=== PATIENT | male | born 1950 | race Caucasian/White ===

== ENCOUNTER 2017-04-09 07:38 | Day surgery (SDC) | payer MEDICARE ==
[2017-04-08 15:52] LABS: ABSOLUTE EOSINOPHILS # (AUTO) 0.1 10^3/uL (0.0-0.6); ABSOLUTE LYMPHOCYTES (AUTO) 1.9 10^3/uL (0.5-4.7); ABSOLUTE MONOCYTES (AUTO) 1.1 10^3/uL (0.1-1.4); ABSOLUTE NEUT (AUTO) 3.9 10^3/uL (1.7-8.2); BASOPHILS % (AUTO) 0.5 % (0-2); EOSINOPHILS % (AUTO) 0.8 % (0-6); HEMATOCRIT 47.9 % (37.9-51.0); HEMOGLOBIN 16.1 g/dL (13.5-17.0); HGB HCT DIFFERENCE 0.4; LYMPHOCYTES % (AUTO) 27.5 % (13-45); MEAN CORPUSCULAR HEMOGLOBIN 30.4 pg (27.0-33.4); MEAN CORPUSCULAR HGB CONC 33.6 g/dL (32.0-36.0); MEAN CORPUSCULAR VOLUME 90 fl (80-97); MONOCYTES % (AUTO) 15.9 % (3-13); RED CELL DISTRIBUTION WIDTH 13.7 % (11.5-14.0); SEGMENTED NEUTROPHILS % (AUTO) 55.3 % (42-78); WHITE BLOOD COUNT 7.1 10^3/uL (4.0-10.5)
[2017-04-08 16:10] LABS: ANION GAP 9 (5-19); BLOOD UREA NITROGEN 20 mg/dL (7-20); CALCIUM 9.3 mg/dL (8.4-10.2); CARBON DIOXIDE 25 mmol/L (22-30); CHLORIDE 105 mmol/L (98-107); CREATININE RESULT 1.01 mg/dL (0.52-1.25); GLUCOSE 101 mg/dL (75-110); POTASSIUM 4.3 mmol/L (3.6-5.0)
[2017-04-09] MEDS ORDERED: LIDOCAINE 2% JELLY 30 ML TUBE ONE (07:44)
[2017-04-09] MEDS ORDERED: EPINEPHRINE INJ/PF 1 MG/1 ML AMPULE ONE (07:44)
[2017-04-09] MEDS ORDERED: NALOXONE HCL INJ/PF 0.4 MG/1 ML SDV ONE (07:44)
[2017-04-09] MEDS ORDERED: FLUMAZENIL INJ 0.5 MG/5 ML VIAL IV ONE (07:45)
[2017-04-09] MEDS ORDERED: FENTANYL CITRATE INJ/PF 100 MCG/2 ML AMPUL ONE (07:45)
[2017-04-09] MEDS ORDERED: EPINEPHRINE INJ 1 MG/10 ML DISP.SYRIN ONE (07:45)
[2017-04-09] MEDS ORDERED: LIDOCAINE 2% INJ (20 MG/ML) 20 ML MDV ONE ×2 (07:55→11:03)
[2017-04-09 09:07] LABS: HEMATOCRIT 50.5 % (37.9-51.0); HEMOGLOBIN 16.9 g/dL (13.5-17.0); HGB HCT DIFFERENCE 0.2; MEAN CORPUSCULAR HEMOGLOBIN 30.3 pg (27.0-33.4); MEAN CORPUSCULAR HGB CONC 33.4 g/dL (32.0-36.0); MEAN CORPUSCULAR VOLUME 91 fl (80-97); RED BLOOD COUNT 5.57 10^6/uL (4.35-5.55); WHITE BLOOD COUNT 7.2 10^3/uL (4.0-10.5)
[2017-04-09 09:30] LABS: ANION GAP 11 (5-19); BLOOD UREA NITROGEN 15 mg/dL (7-20); CALCIUM 9.5 mg/dL (8.4-10.2); CARBON DIOXIDE 24 mmol/L (22-30); CHLORIDE 105 mmol/L (98-107); CREATININE RESULT 0.83 mg/dL (0.52-1.25); GLUCOSE 105 mg/dL (75-110); POTASSIUM 4.5 mmol/L (3.6-5.0); SODIUM 140.3 mmol/L (137-145)
[2017-04-09] MEDS: MIDAZOLAM 2 MG/2 ML INJ ONE ×8 (10:35→10:42)
--- NOTE | 2017-04-09 12:04 | EKG REPORT ---
SEVERITY:- NORMAL ECG - SINUS RHYTHM : Confirmed by: Batsheva Wong MD 09-Apr-2017 12:03:15
[2017-04-09 12:54] VITALS: BP 123/68
--- NOTE | 2017-04-09 16:14 | OPERATIVE REPORT E ---
Operative Report NAME: JODY ROBERTS : 1950 AGE: 66Y DATE OF SURGERY: ROOM: PREOPERATIVE DIAGNOSIS: The patient is a 50-year-old male who came in with a seven cough, pulmonary infiltrates both lungs. Cavitary nodule on the left upper lobe. OPERATION: The patient underwent flexible bronchoscopy today with bronchial washings and bronchial lavage. SURGEON: LIZET GREGORY M.D. PROCEDURE: Patient provided consent for the procedure. The patient verbalized understanding of the indications, and potential complications of the flexible bronchoscopy, which includes bleeding, infection, pneumothorax, cardiac arrhythmia, as well as heart attack. Patient was connected to the cardiac monitors with pulse oximetry, respiratory monitor, and blood pressure monitor. Patient was given lidocaine 2% 5 mL via nebulizer, and 2% lidocaine solution 3 mL via atomizer. Lidocaine gel 2% was applied through cotton pledgets to the posterior pharyngeal area and posterior pharyngeal wall; 1% lidocaine solution was given in aliquots of 3 mL as the flexible bronchoscope was advanced into the vocal cords and airways. Patient was given versed 0.5 mg increments for a total dose of 4 mg and fentanyl at 25 mcg increments for a total of 50 mcg. The vocal cords appeared normal. The epiglottis appeared normal. The trachea appeared normal. There were no lesions noted. Adriana was sharp at the midline. Right mainstem bronchus, right upper lobe bronchi, right middle lobe bronchi, and right lower lobe bronchi appeared normal. There were no endobronchial lesions noted. Left mainstem bronchus, left upper lobe bronchi, and the left lower lobe appeared normal. There were no endobronchial lesions. Secretions were suctioned from the right upper lobe, right middle lobe, left lower lobe, and left upper lobe. Bronchioalveolar lavage was performed on the right upper lobe, and then secretions were suctioned thereafter. Bronchioalveolar lavage was performed on the left upper lobe, and secretions were suctioned thereafter, and bronchioalveolar lavage was also performed on the right middle lobe. Patient tolerated the procedure very well. Bronchioalveolar lavage will be sent for cytology and microbiology. The bronchial washings will be sent to microbiology for AFB culture,fungal culture, and bacterial cultures. Patient advised for pulmonary clinic followup in 1 to 2 weeks. DICTATING PHYSICIAN: LIZET GREGORY MD,CANDIDO,MPH [id number] PHY#: [id number] ID: [id number] JOB#: [id number] ACCT: [id number] cc:LIZET GREGORY M.D. > MARIA A
== END 2017-04-09 12:50 | disposition home or self-care (01) ==
LOC: OROUT 07:38
PROVIDERS: ATTEND Internal Medicine Critical Care Medicine
PROC: 0B988ZX Drainage of Left Upper Lobe Bronchus, Via Natural or Artificial Opening Endoscopic, Diagnostic (ICD-10-PCS; 2017-04-09)
PROC: 0B958ZX Drainage of Right Middle Lobe Bronchus, Via Natural or Artificial Opening Endoscopic, Diagnostic (ICD-10-PCS; 2017-04-09)
PROC: 0B948ZX Drainage of Right Upper Lobe Bronchus, Via Natural or Artificial Opening Endoscopic, Diagnostic (ICD-10-PCS; principal; 2017-04-09 10:00)
DX: R91.8 Other nonspecific abnormal finding of lung field (principal); R91.1 Solitary pulmonary nodule; J47.9 Bronchiectasis, uncomplicated; B95.61 Methicillin susceptible Staphylococcus aureus infection as the cause of diseases classified elsewhere; Z79.899 Other long term (current) drug therapy; Z87.891 Personal history of nicotine dependence
CPT/HCPCS: 31624; 36415 ×2; 87070; 87205; 87206; 87116; 87101; 85025; 85027; 87077; 80048 ×2; 84484; 87186; 87015; 88162; 88104 ×2; 93005; 93010; J2250; J3490; J3010; J0171; J2310

== ENCOUNTER 2018-04-27 13:12 | Observation (INO) | payer MEDICARE ==
[2018-04-27] MEDS ORDERED: IPRATROPIUM/ALBUTEROL 0.5-2.5 MG/3 ML AMPUL NEB ONE (14:02)
[2018-04-27] MEDS ORDERED: ASPIRIN 81 MG TABLET, CHEWABLE PO ONE (14:02)
--- NOTE | 2018-04-27 14:05 | ER Document Report ---
ED Medical Screen (RME) - General Chief Complaint: Chest Pain Stated Complaint: CHEST PRESSURE Time Seen by Provider: 04/27/18 14:02 Notes: 67 years old male presents today with chest heaviness chest pressure sensation for a long period of time. But today this morning it was more severe therefore present to the ED. It is not associated with left arm numbness tingling sensation nausea vomiting palpitation or diaphoresis. He had a stent placed in . Currently being evaluated by data collection technician his next appointment is coming . Had no recent angiography of stress echo. He also seen by a weaving machine operator no recent lung function. Former smoker. TRAVEL OUTSIDE OF THE [place] IN LAST 30 DAYS: No - Related Data Allergies/Adverse Reactions: No Known Allergies Allergy (Unverified 07/11/16 07:46) Past Medical History - Social History Chew tobacco use (# tins/day): No Frequency of alcohol use: None Drug Abuse: None - Past Medical History Cardiac Medical History: Reports: Hx Coronary Artery Disease - CARDIAC STENT X 1 (1999), Hx Heart Attack - 1999 Denies: Hx Hypertension Pulmonary Medical History: Denies: Hx Asthma, Hx Bronchitis, Hx COPD, Hx Pneumonia Neurological Medical History: Denies: Hx Cerebrovascular Accident, Hx Seizures Renal/ Medical History: Denies: Hx Peritoneal Dialysis GI Medical History: Reports: Hx Gastroesophageal Reflux Disease Musculoskeltal Medical History: Denies Hx Arthritis Past Surgical History: Reports: Hx Appendectomy, Hx Cardiac Catheterization - With stent placement about 20 years ago., Hx Coronary Stent, Hx Orthopedic Surgery - Right hand surgery in the remote past. - Immunizations Hx Diphtheria, Pertussis, Tetanus Vaccination: No - UNK Physical Exam - Vital signs Vitals: Temp Pulse Resp BP Pulse Ox 98.3 F 114 H 16 133/72 H 97 04/27/18 13:26 04/27/18 13:26 04/27/18 13:26 04/27/18 13:26 04/27/18 13:26 Course - Vital Signs Vital signs: Temp Pulse Resp BP Pulse Ox 98.3 F 114 H 16 133/72 H 97 04/27/18 13:26 04/27/18 13:26 04/27/18 13:26 04/27/18 13:26 04/27/18 13:26 Doctor's Discharge - Discharge Referrals: ARRON HIDALGO, [employer] [employer]ER [Primary Care Provider] - Follow up as needed
--- NOTE | 2018-04-27 15:22 | RADIOLOGY REPORT (SQ) ---
EXAM DESCRIPTION: CHEST SINGLE VIEW COMPLETED DATE/TIME: 04/27/2018 3:00 pm REASON FOR STUDY: Shortness of breath COMPARISON: Chest CT scan dated June 2016 EXAM PARAMETERS: NUMBER OF VIEWS: One view. TECHNIQUE: Single frontal radiographic view of the chest acquired. RADIATION DOSE: NA LIMITATIONS: None. FINDINGS: LUNGS AND PLEURA: Extensive chronic appearing changes are identified which were present on the previous study. There are some minimal confluent densities in the left lung which could represe nt an acute process superimposed on the chronic underlying changes. Clinical correlation and followu p is recommended. MEDIASTINUM AND HILAR STRUCTURES: No masses. Contour normal. HEART AND VASCULAR STRUCTURES: Heart normal in size. Normal vasculature. BONES: No acute findings. HARDWARE: None in the chest. OTHER: No other significant finding. IMPRESSION: Extensive chronic appearing changes as noted above. There are some minimal confluent de nsities in the left lung which could represent an acute process superimposed on the chronic underlyin g changes. Clinical correlation and followup is recommended. Other findings as noted above TECHNICAL DOCUMENTATION: JOB ID: [id number] [email or web address]- All Rights Reserved Reading location - IP/workstation name: [email or web address]
[2018-04-27 15:26] LABS: ABSOLUTE LYMPHOCYTES (AUTO) 2.6 10^3/uL (0.5-4.7); ABSOLUTE MONOCYTES (AUTO) 1.4 10^3/uL (0.1-1.4); ABSOLUTE NEUT (AUTO) 6.9 10^3/uL (1.7-8.2); BASOPHILS % (AUTO) 0.4 % (0-2); EOSINOPHILS % (AUTO) 0.4 % (0-6); HEMATOCRIT 49.8 % (37.9-51.0); HEMOGLOBIN 16.8 g/dL (13.5-17.0); LYMPHOCYTES % (AUTO) 23.5 % (13-45); MEAN CORPUSCULAR HEMOGLOBIN 30.5 pg (27.0-33.4); MEAN CORPUSCULAR HGB CONC 33.8 g/dL (32.0-36.0); MEAN CORPUSCULAR VOLUME 90 fl (80-97); MONOCYTES % (AUTO) 12.7 % (3-13); PLATELET COUNT 260 10^3/uL (150-450); RED BLOOD COUNT 5.53 10^6/uL (4.35-5.55); RED CELL DISTRIBUTION WIDTH 14.4 % (11.5-14.0); TOTAL CELLS COUNTED % (AUTO) 100 %; WHITE BLOOD COUNT 10.9 10^3/uL (4.0-10.5)
[2018-04-27 15:48] LABS: ALANINE AMINOTRANSFERASE 20 U/L (21-72); ALBUMIN 4.9 g/dL (3.5-5.0); ALKALINE PHOSPHATASE 84 U/L (38-126); ANION GAP 14 (5-19); ASPARTATE AMINO TRANSFERASE 34 U/L (17-59); BILIRUBIN,DIRECT 0.3 mg/dL (0.0-0.4); BILIRUBIN,TOTAL 0.6 mg/dL (0.2-1.3); BLOOD UREA NITROGEN 15 mg/dL (7-20); CALCIUM 9.9 mg/dL (8.4-10.2); CARBON DIOXIDE 26 mmol/L (22-30); CHLORIDE 104 mmol/L (98-107); CREATINE KINASE 159 U/L (55-170); GLUCOSE 117 mg/dL (75-110); POTASSIUM 3.9 mmol/L (3.6-5.0); SODIUM 144.1 mmol/L (137-145); TOTAL PROTEIN 9.5 g/dL (6.3-8.2)
[2018-04-27 15:52] LABS: CREATINE KINASE MB 1.72 ng/mL (<4.55)
[2018-04-27 15:55] LABS: TROPONIN I 0.044 ng/mL
--- NOTE | 2018-04-27 22:28 | EKG REPORT ---
SEVERITY:- ABNORMAL ECG - SINUS TACHYCARDIA PROBABLE INFEROLATERAL INFARCT, AGE INDETERM : Confirmed by: Batsheva Wong MD 27-Apr-2018 22:27:36
--- NOTE | 2018-04-27 23:34 | ER Document Report ---
ED Cardiac - General Chief Complaint: Chest Pain Stated Complaint: CHEST PRESSURE Time Seen by Provider: 04/27/18 14:02 Mode of Arrival: Ambulatory TRAVEL OUTSIDE OF THE [place] IN LAST 30 DAYS: No - HPI Patient complains to provider of: Chest pain, Other - 67-year-old man with the past medical history significant for myocardial infarction as well as a single stent placement many years prior was on aspirin who presents for evaluation of intermittent chest pressure and tightness which is exertional in nature causes him some diaphoresis and nausea and generally makes him stop having to do activities. This is been going on for some time but has been worsening of late. He does have some episodes of lightheadedness during these times. He denies any emesis, diarrhea constipation dysuria or dark tarry stools. He does note that he has had some chest tightness for which she has been evaluated for his lungs without any diagnosis being identified. Nothing is seemed to make the pain any better except for rest, exertion makes it worse. Use of: Other - Related Data Allergies/Adverse Reactions: No Known Allergies Allergy (Unverified 07/11/16 07:46) Past Medical History - General Information source: Patient - Social History Smoking Status: Former Smoker Chew tobacco use (# tins/day): No Frequency of alcohol use: None Drug Abuse: None Family History: Reviewed & Not Pertinent Patient has suicidal ideation: No Patient has homicidal ideation: No - Past Medical History Cardiac Medical History: Reports: Hx Coronary Artery Disease - CARDIAC STENT X 1 (1999), Hx Heart Attack - 1999 Denies: Hx Hypertension Pulmonary Medical History: Denies: Hx Asthma, Hx Bronchitis, Hx COPD, Hx Pneumonia Neurological Medical History: Denies: Hx Cerebrovascular Accident, Hx Seizures Renal/ Medical History: Denies: Hx Peritoneal Dialysis GI Medical History: Reports: Hx Gastroesophageal Reflux Disease Musculoskeletal Medical History: Denies Hx Arthritis Past Surgical History: Reports: Hx Appendectomy, Hx Cardiac Catheterization - With stent placement about 20 years ago., Hx Coronary Stent, Hx Orthopedic Surgery - Right hand surgery in the remote past. - Immunizations Hx Diphtheria, Pertussis, Tetanus Vaccination: No - UNK Review of Systems - Review of Systems -: Yes All other systems reviewed and negative Physical Exam - Vital signs Vitals: Temp Pulse Resp BP Pulse Ox 98.3 F 114 H 16 133/72 H 97 04/27/18 13:26 04/27/18 13:26 04/27/18 13:26 04/27/18 13:26 04/27/18 13:26 - General General appearance: Appears well In distress: None - HEENT Head: Normocephalic Eyes: Normal Conjunctiva: Normal - Respiratory Respiratory status: No respiratory distress Chest status: Nontender Breath sounds: Normal Chest palpation: Normal - Cardiovascular Rhythm: Regular, Tachycardia Heart sounds: Normal auscultation - Abdominal Inspection: Normal Distension: No distension Bowel sounds: Normal Tenderness: Nontender - Back Back: Normal - Extremities General upper extremity: Normal inspection General lower extremity: Normal inspection - Neurological Neuro grossly intact: Yes - Skin Skin Temperature: Warm Course - Re-evaluation Re-evalutation: 04/28/18 03:44 This 67-year-old man presented for evaluation of intermittent chest pain which is worth with exertion. He has a significant cardiac history consisting of an NC and stent placement in the past, given his age history risk factors EKG and troponin his heart score is a 6. He has not had any evocative testing recently as such believe he would benefit from an inpatient stay and consideration for either catheterization or stress test. Patient is currently symptom-free at rest, will plan to continue monitoring. His EKG did demonstrate modest ischemic changes from previous. Has spoken to the hospitalist who agrees to admission at this time for this patient. We will plan to reassess as necessary and continue to monitor in emergency department. - Vital Signs Vital signs: Temp Pulse Resp BP Pulse Ox 98.3 F 114 H 19 125/66 96 04/27/18 13:26 04/27/18 13:26 04/28/18 03:01 04/28/18 03:00 04/28/18 03:01 - Laboratory Result Diagrams: 04/27/18 14:50 04/27/18 14:50 Laboratory results interpreted by me: 04/27/18 04/27/18 14:50 14:50 WBC 10.9 H RDW 14.4 H Glucose 117 H ALT 20 L Total Protein 9.5 H - EKG Interpretation by [facility] EKG shows normal: Sinus rhythm Rate: Tachycardia - rate 117, normal axis, ST segment depressions through V4 5 6 Department changed from EKG from 04/09/2017 Discharge - Discharge
[2018-04-27] MEDS ORDERED: ACETAMINOPHEN 325 MG TABLET PO PRN (23:46)
[2018-04-27] MEDS ORDERED: ONDANSETRON HCL INJ/PF 4 MG/2 ML SDV IV PRN (23:46)
[2018-04-27] MEDS ORDERED: MAGNESIUM HYDROXIDE SUSP 30 ML UDCUP PO PRN (23:46)
[2018-04-27] MEDS ORDERED: MAG HYDROX/AL HYDROX/SIMETH SUSP 30 ML UDCUP PO PRN (23:46)
--- NOTE | 2018-04-28 00:30 | PDOC H&P ---
History of Present Illness Admission Date/PCP: 04/27/2018 ARRON HIDALGO NP Patient complains of: Chest pain History of Present Illness: JODY ROBERTS is a 67 year old male with history of coronary artery disease status post PCI and stent in 1998 who presented to the emergency room with a calcium of midsternal chest pain felt this tightness increasing with exertion and relieved with rest which has been intermittent over the last 3 years but got worse lately. He denies any associated nausea vomiting or diaphoresis, dyspnea or palpitations. He denied abdominal pain or any bleeding diathesis. No fever or chills. No cough or wheezing or hemoptysis. Upon presentation to the emergency room his EKG showed sinus tachycardia with a rate of 117 and. Blood pressure is 133/72 with a pulse of 114, respiratory rate 16, temperature 98.3 and pulse oximetry of 97% on room air. Labs showed the mild leukocytosis. CMP was unremarkable and troponin I was 0.044 and later 0.102 then 0.108 with CK-MB 1.72 and CK 159. His chest x-ray showed extensive chronic appearing changes with some minimal confluent densities in the left lung which could represent an acute process superimposed on the chronic underlying changes. The patient however denied any respiratory symptoms. The patient was given aspirin. He will be admitted to an observation telemetry bed for further evaluation and monitoring. Past Medical History Cardiac Medical History: Reports: Coronary Artery Disease - CARDIAC STENT X 1 ( 1999), Myocardial Infarction - 1999, Heart Murmur - Systolic Denies: Hypertension Pulmonary Medical History: Denies: Asthma, Bronchitis, Chronic Obstructive Pulmonary Disease (COPD), Pneumonia Neurological Medical History: Denies: Seizures GI Medical History: Reports: Gastroesophageal Reflux Disease Musculoskeltal Medical History: Denies: Arthritis Hematology: Denies: Anemia Past Surgical History Past Surgical History: Reports: Appendectomy, Cardiac Catheterization - With stent placement about 20 years ago., Coronary Stent, Orthopedic Surgery - Right hand surgery in the remote past. Social History Smoking Status: Former Smoker Frequency of Alcohol Use: Occasional Hx Recreational Drug Use: No Drugs: None Hx Prescription Drug Abuse: No Family History Family History: CAD, Malignancy Parental Family History Reviewed: Yes Children Family History Reviewed: Yes Sibling(s) Family History Reviewed.: Yes Medication/Allergy Home Medications: Ascorbic Acid [Vitamin C] 04/09/17 Fiber [Fiber Choice] 04/09/17 Creswell-3/Dha/Epa/Fish Oil [Fish Oil 1,000 mg Softgel] 04/09/17 Ubidecarenone [Coq-10] 04/09/17 Allergies/Adverse Reactions: No Known Allergies Allergy (Unverified 07/11/16 07:46) Review of Systems Review of Systems: As per history of present illness. All pertinent systems were reviewed above. Constitutional, HEENT, cardiovascular, respiratory, GI, , musculoskeletal, neuro, psychiatric, endocrine, integumentary and hematologic systems were reviewed and are otherwise negative/unremarkable except for positive findings mentioned above in the HPI. Physical Exam Vital Signs: Temp Pulse Resp BP Pulse Ox 98.3 F 114 H 22 H 141/81 H 93 04/27/18 13:26 04/27/18 13:26 04/27/18 20:01 04/27/18 20:01 04/27/18 20:01 Intake & Output 04/26/18 04/27/18 04/28/18 06:59 06:59 06:59 Weight 78.8 kg Exam: Generally: Very pleasant elderly male in no acute distress Vital signs-as listed Head - atraumatic, normocephalic. Pupils - equal, round and reactive to light and accommodation. Extraocular movements are intact. No scleral icterus. Oropharynx - moist mucous membranes and tongue. No pharyngeal erythema or exudate. Neck - supple. No JVD. Carotid pulses 2+ bilaterally. No carotid bruits. No palpable thyromegaly or lymphadenopathy. Cardiovascular - regular rate and rhythm. Normal S1 and S2. 2/6 systolic ejection murmur, with no gallops or rubs. Lungs - clear to auscultation bilaterally. Abdomen - soft and nontender. Positive bowel sounds. No palpable organomegaly or masses. Extremities - no pitting edema, clubbing or cyanosis. Neuro - grossly non-focal. Skin - no rashes. and rectal exam - deferred. Results Laboratory Results: 04/27/18 14:50 04/27/18 14:50 04/27/18 04/27/18 04/27/18 14:50 14:50 14:50 WBC 10.9 H RBC 5.53 Hgb 16.8 Hct 49.8 MCV 90 MCH 30.5 MCHC 33.8 RDW 14.4 H Plt Count 260 Seg Neutrophils % 63.0 Lymphocytes % 23.5 Monocytes % 12.7 Eosinophils % 0.4 Basophils % 0.4 Absolute Neutrophils 6.9 Absolute Lymphocytes 2.6 Absolute Monocytes 1.4 Absolute Eosinophils 0.0 Absolute Basophils 0.0 Sodium Cancelled 144.1 Potassium Cancelled 3.9 Chloride Cancelled 104 Carbon Dioxide Cancelled 26 Anion Gap Cancelled 14 BUN Cancelled 15 Creatinine Cancelled 1.16 Est GFR ( Amer) Cancelled > 60 Est GFR (Non-Af Amer) Cancelled > 60 Glucose Cancelled 117 H Calcium Cancelled 9.9 Total Bilirubin Cancelled 0.6 AST Cancelled 34 ALT Cancelled 20 L Alkaline Phosphatase Cancelled 84 Total Protein Cancelled 9.5 H Albumin Cancelled 4.9 04/27/18 04/27/18 04/27/18 14:50 14:50 14:50 Creatine Kinase Cancelled 159 CK-MB (CK-2) 1.72 Troponin I 0.044 04/27/18 04/27/18 18:30 21:22 Creatine Kinase CK-MB (CK-2) Troponin I 0.102 0.108 Impressions: Chest X-Ray 04/27/18 14:02 IMPRESSION: Extensive chronic appearing changes as noted above. There are some minimal confluent densities in the left lung which could represent an acute process superimposed on the chronic underlying changes. Clinical correlation and followup is recommended. Other findings as noted above Assessment & Plan - Diagnosis (1) Chest pain Is this a current diagnosis for this admission?: Yes Plan: Chest pain, rule out acute coronary syndrome. The patient will be admitted to an observation telemetry bed. Will follow serial cardiac enzymes and EKGs. We will obtain a cardiology consult in a.m. for further cardiac risk stratification. The patient will be placed on aspirin as well as p.r.n. sublingual nitroglycerin and morphine sulfate for pain. (2) Coronary artery disease Is this a current diagnosis for this admission?: Yes Plan: The patient will be placed on aspirin and statin therapy. Beta-leobardo therapy should be considered. (3) GERD (gastroesophageal reflux disease) Is this a current diagnosis for this admission?: Yes Plan: The patient will be placed on p.o. Prevacid the possibility of GI etiology. (4) DVT prophylaxis Is this a current diagnosis for this admission?: Yes Plan: Subcutaneous Lovenox - Plan Summary Plan Summary: The plan of care was discussed in details with the patient. I answered all questions. The patient agreed to proceed with the above-mentioned plan. The patient is presumably full code. This note was created by [employer] software and may contain typo errors that may have not been proofread.
[2018-04-28 03:50] LABS: ABSOLUTE BASOPHILS # (AUTO) 0.1 10^3/uL (0.0-0.2); ABSOLUTE EOSINOPHILS # (AUTO) 0.1 10^3/uL (0.0-0.6); ABSOLUTE LYMPHOCYTES (AUTO) 1.9 10^3/uL (0.5-4.7); ABSOLUTE MONOCYTES (AUTO) 1.1 10^3/uL (0.1-1.4); ABSOLUTE NEUT (AUTO) 4.5 10^3/uL (1.7-8.2); BASOPHILS % (AUTO) 0.7 % (0-2); EOSINOPHILS % (AUTO) 1.2 % (0-6); HEMATOCRIT 47.1 % (37.9-51.0); MEAN CORPUSCULAR HEMOGLOBIN 30.2 pg (27.0-33.4); MEAN CORPUSCULAR HGB CONC 33.9 g/dL (32.0-36.0); MEAN CORPUSCULAR VOLUME 89 fl (80-97); MONOCYTES % (AUTO) 14.4 % (3-13); PLATELET COUNT 229 10^3/uL (150-450); RED BLOOD COUNT 5.27 10^6/uL (4.35-5.55); RED CELL DISTRIBUTION WIDTH 14.2 % (11.5-14.0); SEGMENTED NEUTROPHILS % (AUTO) 58.7 % (42-78); TOTAL CELLS COUNTED % (AUTO) 100 %; WHITE BLOOD COUNT 7.7 10^3/uL (4.0-10.5)
[2018-04-28 04:13] LABS: ANION GAP 12 (5-19); BLOOD UREA NITROGEN 14 mg/dL (7-20); CALCIUM 9.5 mg/dL (8.4-10.2); CARBON DIOXIDE 25 mmol/L (22-30); CHLORIDE 106 mmol/L (98-107); CHOLESTEROL 255.75 mg/dL (0-200); CREATINE KINASE 110 U/L (55-170); GLUCOSE 106 mg/dL (75-110); POTASSIUM 4.2 mmol/L (3.6-5.0); SODIUM 142.7 mmol/L (137-145); TRIGLYCERIDES 151 mg/dL (<150)
[2018-04-28] MEDS: NORMAL SALINE 1000 ML 1,000 ML IV PRN ×2 (04:17→21:18)
[2018-04-28 04:23] LABS: CREATINE KINASE MB 1.57 ng/mL (<4.55); DIRECT LDL 168 mg/dL (<100); TROPONIN I 0.078 ng/mL
[2018-04-28 04:25] LABS: VLDL CHOLESTEROL 30.2 mg/dL (10-31)
[2018-04-28] MEDS ORDERED: LANSOPRAZOLE 30 MG TAB.RAP.DR PO SCH (06:00)
[2018-04-28 10:24] LABS: CREATINE KINASE MB 1.41 ng/mL (<4.55); TROPONIN I 0.05 ng/mL
[2018-04-28] MEDS ORDERED: CLOPIDOGREL BISULFATE 300 MG TABLET PO ONE (11:30)
[2018-04-28] MEDS: OMEGA-3 ACID ETHYL ESTERS 1 GM CAPSULE PO SCH (11:33)
[2018-04-28] MEDS: ENOXAPARIN SODIUM INJ 40 MG/0.4 ML DISP.SYRIN SUBCUT SCH (11:48)
--- NOTE | 2018-04-28 13:45 | EKG REPORT ---
SEVERITY:- NORMAL ECG - SINUS RHYTHM : Confirmed by: Batsheva Wong MD 28-Apr-2018 13:44:00
[2018-04-28 16:18] LABS: CREATINE KINASE MB 1.13 ng/mL (<4.55); TROPONIN I 0.037 ng/mL
[2018-04-28] MEDS: LANSOPRAZOLE 30 MG TAB.RAP.DR PO SCH (16:28)
[2018-04-28] MEDS ORDERED: TRAZODONE HCL 50 MG TABLET PO SCH (22:00)
[2018-04-28] MEDS ORDERED: ATORVASTATIN CALCIUM 40 MG TABLET PO SCH (22:00)
--- NOTE | 2018-04-28 22:36 | PDOC CONSULTATION ---
Consultation Consult Date: 04/28/18 Attending physician:: RAIN SIERRA Consult reason:: Chest pain History of Present Illness Admission Date/PCP: 04/28/18 00:09 ARRON HIDALGO NP Patient complains of: Chest pain History of Present Illness: JODY ROBERTS is a 67 year old male with history of coronary artery disease status post PCI and stent in 1998 who presented to the emergency room with a calcium of midsternal chest pain felt this tightness increasing with exertion and relieved with rest which has been intermittent over the last 3 years but got worse lately. He denies any associated nausea vomiting or diaphoresis, dyspnea or palpitations. He denied abdominal pain or any bleeding diathesis. No fever or chills. No cough or wheezing or hemoptysis. Upon presentation to the emergency room his EKG showed sinus tachycardia with a rate of 117 and. Blood pressure is 133/72 with a pulse of 114, respiratory rate 16, temperature 98.3 and pulse oximetry of 97% on room air. Labs showed the mild leukocytosis. CMP was unremarkable and troponin I was 0.044 and later 0.102 then 0.108 with CK-MB 1.72 and CK 159. His chest x-ray showed extensive chronic appearing changes with some minimal confluent densities in the left lung which could represent an acute process superimposed on the chronic underlying changes. The patient however denied any respiratory symptoms. The patient was given aspirin. He will be admitted to an observation telemetry bed for further evaluation and monitoring. This history obtained by the hospitalist was confirmed and reviewed with patient as well as his . Patient does have history of coronary artery disease having had a stent placed many years ago. Patient also describes significant problems with esophageal reflux and history of peptic ulcer disease. Patient claims that he has been burping excessively over the last few days. Past Medical History Cardiac Medical History: Reports: Coronary Artery Disease - CARDIAC STENT X 1 ( 1999), Myocardial Infarction, Heart Murmur - Systolic Denies: Hypertension Pulmonary Medical History: Denies: Asthma, Bronchitis, Chronic Obstructive Pulmonary Disease (COPD), Pneumonia Neurological Medical History: Denies: Seizures GI Medical History: Reports: Gastroesophageal Reflux Disease Musculoskeltal Medical History: Denies: Arthritis Hematology: Denies: Anemia Past Surgical History Past Surgical History: Reports: Appendectomy, Cardiac Catheterization - With stent placement about 20 years ago., Coronary Stent, Orthopedic Surgery - Right hand surgery in the remote past. Social History Information Source: Patient Smoking Status: Former Smoker Frequency of Alcohol Use: Occasional Hx Recreational Drug Use: No Drugs: None Hx Prescription Drug Abuse: No - Advance Directive Resuscitation Status: Do Not Intubate Surrogate healthcare decision maker:: Family History Family History: Hypertension Parental Family History Reviewed: Yes Children Family History Reviewed: Yes Sibling(s) Family History Reviewed.: Yes Medication/Allergy Home Medications: Aspirin [Aspirin EC] 81 mg PO DAILY 04/28/18 Omeprazole Magnesium [Prilosec Otc] 20 mg PO DAILY 04/28/18 Atorvastatin Calcium [Lipitor 40 mg Tablet] 40 mg PO QHS #30 tablet 04/29/18 Clopidogrel Bisulfate [Plavix 75 mg Tablet] 75 mg PO DAILY #30 tablet 04/29/18 Lisinopril [Zestril] 2.5 mg PO DAILY #30 tablet 04/29/18 Metoprolol Succinate [Toprol Xl] 12.5 mg PO DAILY #30 tab.er.24h 04/29/18 Allergies/Adverse Reactions: No Known Allergies Allergy (Verified 04/28/18 07:22) Review of Systems Review of Systems: Please see history of present illness and past medical history as wall. Constitutional: No fever or chills reported. Head : No recent chronic headaches, recent head injury. Eyes: No recent eye pain, diplopia, redness, discharge, acute visual changes. Ears: No recent chronic ear pain, acute hearing loss, ear discharge. Oral cavity: No recent ulcerations, bleeding, oral cavity discomfort. Neck: No recent acute neck pain reported. Hematologic: No recent easy bruising or bleeding. Lymphatic: No recent lymph node enlargement reported. Cardiovascular system review: See history of present illness. Respiratory system review: No hemoptysis or blood clots in the lungs reported. Mild Shortness of breath on exertion Gastrointestinal system review: Negative for any recent acute hematemesis, melena. Genitourinary system review: No recent acute or chronic hematuria, flank pain, UTI etc. reported. Skin system review: Negative for any recent abnormal bruising, no rash, no pruritus reported. Neurologic: No prior history of strokes, mini strokes, seizure disorder. Psychologic: No history of major psychosis or major depression reported. Musculoskeletal: Minor aches and pains reported. No acute joint swelling reported. Endocrine: No recent polyuria, polydipsia, recent heat or cold intolerance. Physical Exam Vital Signs: Temp Pulse Resp BP Pulse Ox 97.6 F 72 17 133/61 H 96 04/28/18 19:45 04/28/18 19:45 04/28/18 19:45 04/28/18 19:45 04/28/18 19:45 Intake & Output 04/27/18 04/28/18 04/29/18 06:59 06:59 06:59 Intake Total 1000 Output Total 200 Balance 800 Weight 78.8 kg Exam: GENERAL: well-nourished and in no acute distress. Alert and oriented x3 HEAD: Atraumatic, normocephalic. EYES: Pupils equal round and reactive to light, extraocular movements intact, sclera anicteric, conjunctiva are normal. ENT: TMs normal, nares patent, oropharynx clear without exudates. Moist mucous membranes. No oral ulcerations or bleeding gums noted NECK: supple without lymphadenopathy. Trachea is central. No cervical or axillary lymphadenopathy noted. Carotids are 2+, JVD WNL LUNGS: Respiration seems nonlabored, no significant accessory muscle action noted. Breath sounds clear to auscultation bilaterally and equal noted. No wheezes rales or rhonchi noted. No significant dullness noted on percussion. CHEST: Palpation of the chest wall shows no significant chest wall tenderness. 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 ABDOMEN: Soft, no significant tenderness appreciated, normoactive bowel sounds. No guarding, no rebound. No rigidity noted . No masses appreciated. EXTREMITIES: Pedal pulses are 1-2+, no calf tenderness noted. No clubbing or cyanosis. negative pedal edema noted NEUROLOGICAL: Focused neurological exam showed no significant neurologic deficit. Normal speech, no focal weakness appreciated. PSYCH: Normal mood, normal affect. Judgment and insight within normal limits. SKIN: No significant ecchymosis, skin is noted to be warm. MUSCULOSKELETAL EXAM: No significant acute joint swelling noted. Results Laboratory Results: 04/28/18 03:41 04/28/18 03:41 04/28/18 04/28/18 03:41 03:41 WBC 7.7 RBC 5.27 Hgb 16.0 Hct 47.1 MCV 89 MCH 30.2 MCHC 33.9 RDW 14.2 H Plt Count 229 Seg Neutrophils % 58.7 Lymphocytes % 25.0 Monocytes % 14.4 H Eosinophils % 1.2 Basophils % 0.7 Absolute Neutrophils 4.5 Absolute Lymphocytes 1.9 Absolute Monocytes 1.1 Absolute Eosinophils 0.1 Absolute Basophils 0.1 Sodium 142.7 Potassium 4.2 Chloride 106 Carbon Dioxide 25 Anion Gap 12 BUN 14 Creatinine 0.86 Est GFR ( Amer) > 60 Est GFR (Non-Af Amer) > 60 Glucose 106 Calcium 9.5 Triglycerides 151 H Cholesterol 255.75 H LDL Cholesterol Direct 168 H VLDL Cholesterol 30.2 HDL Cholesterol 40 04/28/18 04/28/18 04/28/18 03:41 03:41 09:40 Creatine Kinase 110 100 CK-MB (CK-2) 1.57 Troponin I 0.078 04/28/18 04/28/18 04/28/18 09:40 15:36 15:36 Creatine Kinase 92 CK-MB (CK-2) 1.41 1.13 Troponin I 0.050 0.037 EKG Comments: Sinus tachycardia without any acute ST-T wave changes Impressions: Chest X-Ray 04/27/18 14:02 IMPRESSION: Extensive chronic appearing changes as noted above. There are some minimal confluent densities in the left lung which could represent an acute process superimposed on the chronic underlying changes. Clinical correlation and followup is recommended. Other findings as noted above Assessment & Plan - Diagnosis (1) Chest pain Qualifiers: Chest pain type: unspecified Qualified Code(s): R07.9 - Chest pain, unspecified Is this a current diagnosis for this admission?: Yes (2) Coronary artery disease Qualifiers: Coronary Disease-Associated Artery/Lesion type: [place] artery [place] vs. transplanted heart: [place] heart Associated angina: angina presence unspecified Qualified Code(s): I25.10 - Atherosclerotic heart disease of [place] coronary artery without angina pectoris Is this a current diagnosis for this admission?: Yes (3) GERD (gastroesophageal reflux disease) Qualifiers: Esophagitis presence: esophagitis presence not specified Qualified Code(s) : K21.9 - Gastro-esophageal reflux disease without esophagitis Is this a current diagnosis for this admission?: Yes (4) Heart murmur Is this a current diagnosis for this admission?: Yes - Notes Notes: Lovenox, asa, plavix, statin, beta leobardo ECHO NST Chest pain: Patient has some typical and atypical features of chest pain. Cardiac enzymes so far has been negative. Electrocardiogram did not show any definitive ST segment changes. Multiple differential diagnoses exist in this patient. In descending order of probability this includes underlying coronary artery disease, gastroesophageal reflux, musculoskeletal pain, referred pain from elsewhere, anxiety panic disorder etc.Patient has significant cardiac risk factors, and known CAD which indicates that there is a intermediate probability of chest discomfort coming from underlying CAD. Feel that it would need to be evaluated further. Discussed evaluation to assess this. In this regard risk benefits of nuclear stress test and other alternative processes were discussed in detail. The patient prefers to undergo nuclear stress test. The small risk of radiation, myocardial infarction, , cardiac arrhythmias, respiratory distress etc. were discussed. Patient understood the risks and gave informed consent. Nuclear stress test was therefore scheduled. For risk evaluation, patient is also being scheduled for a 2-D echocardiogram. Patient questions were answered. CAD: Patient has known history of CAD. Currently admitted with chest pain and had recurrence during the stress test. Now chest pain-free. There were no EKG changes and enzymes are negative. Patient will benefit from a nuclear stress test. Patient will also benefit from a 2-D echocardiogram for risk stratification. Patient to be treated with antiplatelet therapy, high potency statin therapy, beta blockers, angiotensin receptor leobardo, DILAN inhibitors et cetera. Patient advised against tobacco abuse in any form. Patient to follow healthy lifestyle, low-cholesterol diet et cetera. GERD: Patient seems to have this condition. Weigh loss and treatment of sleep apnea if present and when treated tends to help this condition. Recommend small meals, avoid eating within 3 hours of bedtime, avoid other food substances which had led to reflux in the past. Proton pump inhibitors and other antacids are recommended. Heart murmur: Patient seems to have a mitral regurgitation murmur. Have discussed evaluation with a 2D echocardiogram. - Time Time Spent: 30 to 50 Minutes - CODE STATUS was discussed, patient remains full code. Surrogate decision-maker unchanged. Multiple medical problems were addressed. More than 50% of the time spent coordinating care, discussing management plans with involved caregivers. Management plans discussed with involved personnels. Medical decision making was of moderate to high complexity , patient's has multiple comorbidities. Medications reviewed and adjusted accordingly: Yes
--- NOTE | 2018-04-28 23:18 | PDOC PROGRESS REPORT ---
Subjective Progress Note for:: 04/28/18 Subjective:: The patient is resting quietly. No new complaints. Reason For Visit: CHEST PAIN Physical Exam Vital Signs: Temp Pulse Resp BP Pulse Ox 97.6 F 72 17 133/61 H 96 04/28/18 19:45 04/28/18 19:45 04/28/18 19:45 04/28/18 19:45 04/28/18 19:45 Intake & Output 04/27/18 04/28/18 04/29/18 06:59 06:59 06:59 Intake Total 1000 Output Total 200 Balance 800 Weight 78.8 kg General appearance: PRESENT: no acute distress, cooperative, well-developed, well-nourished Respiratory exam: PRESENT: other - No increased work of breathing. No wheezes, rales, or rhonchi. No tactile fremitus. Cardiovascular exam: PRESENT: RRR. ABSENT: gallop, rubs, systolic murmur Pulses: PRESENT: other - Diminished distal pulses. GI/Abdominal exam: PRESENT: normal bowel sounds, soft. ABSENT: distended, hernia, mass, organolmegaly, tenderness Extremities exam: ABSENT: clubbing, joint swelling, pedal edema, tenderness Musculoskeletal exam: ABSENT: deformity, normal inspection, tenderness Neurological exam: PRESENT: alert, awake, oriented to person, oriented to place , oriented to time, oriented to situation, CN II-XII grossly intact. ABSENT: motor sensory deficit Psychiatric exam: PRESENT: appropriate affect, normal mood Skin exam: PRESENT: dry, intact, warm Results Laboratory Results: 04/28/18 03:41 04/28/18 03:41 04/28/18 04/28/18 03:41 03:41 WBC 7.7 RBC 5.27 Hgb 16.0 Hct 47.1 MCV 89 MCH 30.2 MCHC 33.9 RDW 14.2 H Plt Count 229 Seg Neutrophils % 58.7 Lymphocytes % 25.0 Monocytes % 14.4 H Eosinophils % 1.2 Basophils % 0.7 Absolute Neutrophils 4.5 Absolute Lymphocytes 1.9 Absolute Monocytes 1.1 Absolute Eosinophils 0.1 Absolute Basophils 0.1 Sodium 142.7 Potassium 4.2 Chloride 106 Carbon Dioxide 25 Anion Gap 12 BUN 14 Creatinine 0.86 Est GFR ( Amer) > 60 Est GFR (Non-Af Amer) > 60 Glucose 106 Calcium 9.5 Triglycerides 151 H Cholesterol 255.75 H LDL Cholesterol Direct 168 H VLDL Cholesterol 30.2 HDL Cholesterol 40 04/28/18 04/28/18 04/28/18 03:41 03:41 09:40 Creatine Kinase 110 100 CK-MB (CK-2) 1.57 Troponin I 0.078 04/28/18 04/28/18 04/28/18 09:40 15:36 15:36 Creatine Kinase 92 CK-MB (CK-2) 1.41 1.13 Troponin I 0.050 0.037 Impressions: Chest X-Ray 04/27/18 14:02 IMPRESSION: Extensive chronic appearing changes as noted above. There are some minimal confluent densities in the left lung which could represent an acute process superimposed on the chronic underlying changes. Clinical correlation and followup is recommended. Other findings as noted above Assessment & Plan - Diagnosis (1) Chest pain Qualifiers: Chest pain type: unspecified Qualified Code(s): R07.9 - Chest pain, unspecified Is this a current diagnosis for this admission?: Yes Plan: Cardiology consulted. Plan is for nuclear medicine stress and echocardiogram. ASA, Plavix, Statin. I appreciate cardiology's assistance. (2) Coronary artery disease Qualifiers: Coronary Disease-Associated Artery/Lesion type: [place] artery [place] vs. transplanted heart: [place] heart Associated angina: angina presence unspecified Qualified Code(s): I25.10 - Atherosclerotic heart disease of [place] coronary artery without angina pectoris Is this a current diagnosis for this admission?: Yes Plan: As per cardiology (3) DVT prophylaxis Is this a current diagnosis for this admission?: Yes Plan: Lovenox (4) GERD (gastroesophageal reflux disease) Qualifiers: Esophagitis presence: esophagitis presence not specified Qualified Code(s) : K21.9 - Gastro-esophageal reflux disease without esophagitis Is this a current diagnosis for this admission?: Yes Plan: PPI - Time Time Spent with patient: 25-34 minutes Medications reviewed and adjusted accordingly: Yes
[2018-04-29] MEDS: NORMAL SALINE 1000 ML 1,000 ML IV PRN (06:18)
[2018-04-29] MEDS: LANSOPRAZOLE 30 MG TAB.RAP.DR PO SCH ×2 (06:18→17:10)
[2018-04-29] MEDS ORDERED: CLOPIDOGREL BISULFATE 300 MG TABLET PO SCH (10:00)
[2018-04-29] MEDS ORDERED: ASPIRIN 81 MG TABLET, ENT COATED PO SCH (10:00)
[2018-04-29] MEDS: ENOXAPARIN SODIUM INJ 40 MG/0.4 ML DISP.SYRIN SUBCUT SCH (10:05)
[2018-04-29] MEDS: OMEGA-3 ACID ETHYL ESTERS 1 GM CAPSULE PO SCH (10:06)
[2018-04-29] MEDS ORDERED: CLOPIDOGREL BISULFATE 75 MG TABLET PO SCH (11:00)
[2018-04-29] MEDS ORDERED: CAFFEINE CITRATED INJ/PF 60 MG/3 ML SDV ONE (12:44)
[2018-04-29] MEDS ORDERED: REGADENOSON INJ 0.4 MG/5 ML DISP.SYRIN IV ONE (12:44)
--- NOTE | 2018-04-29 13:33 | DRAGON STRESS TEST REPORT ---
INTRAVENOUS LEXISCAN CARDIOLITE STRESS TEST USING SINGLE PHOTON EMMISION COMPUTERIZED TOMOGRAPHIC. DATE OF PROCEDURE: April 29, 2018, INDICATION : Chest pain CARDIAC RISK FACTORS: Hypertension, history of coronary stent placement RESTING EKG: Sinus rhythm, with incomplete right bundle branch block, no significant baseline ST-T wave changes STRESS EKG: No significant ST segment changes noted with LexiScan bolus REASON FOR TERMINATION: Protocol. PROCEDURE REPORT: Baseline heart rate 81 beats per minute with blood pressure of 139/74. Patient had no significant complaints. Patient was bolused with Lexiscan 0.4 mg intravenously followed by saline bolus. Heart rate at 2 minutes post bolus 102 with a blood pressure of 135/60. 3 minutes post bolus heart rate 96 with blood pressure of 135/63 No significant EKG changes were noted. Patient had no significant complaints during the procedure or postprocedure. CONCLUSIONS: Normal EKG and hemodynamic response to IV LexiScan. NUCLEAR DATA: At rest the patient was given 12.51 millicuries of technetium 99 sestamibi injected intravenously. As per protocol rest gated SPECT images were obtained. On day of stress test, the patient was given intravenous LexiScan at a dose of 0.4 mg in 5 mL intravenously, followed by flush with normal saline. Subsequently the stress dose of 35.5 millicuries of technetium 99 sestamibi was injected intravenously. As per protocol stress gated images were obtained. NUCLEAR INTERPRETATION: Both raw and processed data were used for interpretation. Visual, qualitative, computer-generated quantitative data was used. There was good myocardial uptake of technetium compound. Motion artifact and soft tissue attenuations were noted. Increased visceral uptake was noted. Small area of mild transient perfusion defect or ischemia noted in the inferior wall. SDS is 3, No definitive areas of fixed perfusion defect or scars noted. EKG gated imaging showed LV EF at 59 %, rest and stress gated EF similar visually. T. I D. ratio was 1.21. Lung heart ratio noted to be within normal limits 0.34. No significant extracardiac and abnormal radiotracer activities were noted. RV free wall uptake was noted to be WNL. IMPRESSION: Also refer to comments under nuclear interpretation. Also test results needs to be interpreted in the context of pretest probability. 1. Small area of mild transient perfusion defect or ischemia noted in the inferior wall. SDS is 3, therefore cannot be managed medically if no significant symptoms. 2. There is no definitive scintigraphic evidence of myocardial infarction/scar. 3. EKG gated imaging shows left ventricular ejection fraction of approx. 59 %. 4. Clinical correlation requested as occasionally single vessel disease or balanced ischemia could be missed. In approximately 10% of the cases Lexiscan may not cause adequate vasodilatory stress. RECOMMENDATIONS: Aggressive risk factor modification and medical management. Further evaluation may be needed if continued symptoms or other high risk indicators are noted on clinical evaluation. Close cardiology follow-up is also recommended. Clinical correlation with echocardiogram derived ejection fraction. Inability to exercise by itself can lead to increased cardiovascular event risks. Consider cardiology consultation and or follow-up if clinically indicated. I am available for cardiology evaluation and consultation if requested by the house calls nurse practitioner, unless patient already has a director of instrumental music. Dr. Gurdeep Rutledge. MRCP Board certified in cardiology and sleep medicine. Board certified in nuclear cardiology, adult echocardiography. MARIA A
--- NOTE | 2018-04-29 18:03 | PDOC PROGRESS REPORT ---
Subjective Progress Note for:: 04/29/18 Subjective:: Patient seems to be doing better with gradual improvement. Pt is denying any chest arm or neck discomfort. Patient denying any PND, orthopnea. Patient denied any sustained palpitations, dizziness, syncope, near syncope. Patient denying any fever chills. Patient denying any other significant discomfort. Patient is maintaining sinus rhythm. Review of systems: Rest review of systems negative. Medications: Medications have been reviewed. Reason For Visit: CHEST PAIN Physical Exam Vital Signs: Temp Pulse Resp BP Pulse Ox 98.0 F 66 17 134/62 H 97 04/29/18 15:49 04/29/18 15:49 04/29/18 15:49 04/29/18 15:49 04/29/18 15:49 Intake & Output 04/28/18 04/29/18 04/30/18 06:59 06:59 06:59 Intake Total 2300 620 Output Total 550 Balance 1750 620 Weight 79.8 kg Exam: GENERAL: well-nourished and in no acute distress. Alert and oriented x3 HEAD: Atraumatic, normocephalic. EYES: Pupils equal round and reactive to light, extraocular movements intact, sclera anicteric, conjunctiva are normal. ENT: TMs normal, nares patent, oropharynx clear without exudates. Moist mucous membranes. No oral ulcerations or bleeding gums noted NECK: supple without lymphadenopathy. Trachea is central. No cervical or axillary lymphadenopathy noted. Carotids are 2+, JVD WNL LUNGS: Respiration seems nonlabored, no significant accessory muscle action noted. Breath sounds clear to auscultation bilaterally and equal noted. No wheezes rales or rhonchi noted. No significant dullness noted on percussion. CHEST: Palpation of the chest wall shows no significant chest wall tenderness. HEART: [place] [employer], No PSH, 1/6 [place] aortic area, 2/6 [place] systolic murmur mitral area, no rubs, no gallops. ABDOMEN: Soft, no significant tenderness appreciated, normoactive bowel sounds. No guarding, no rebound. No rigidity noted . No masses appreciated. EXTREMITIES: Pedal pulses are 1-2+, no calf tenderness noted. No clubbing or cyanosis. negative pedal edema noted NEUROLOGICAL: Focused neurological exam showed no significant neurologic deficit. Normal speech, no focal weakness appreciated. PSYCH: Normal mood, normal affect. Judgment and insight within normal limits. SKIN: No significant ecchymosis, skin is noted to be warm. MUSCULOSKELETAL EXAM: No significant acute joint swelling noted. Results Laboratory Results: 04/28/18 03:41 04/28/18 03:41 04/28/18 04/28/18 04/28/18 03:41 03:41 09:40 Creatine Kinase 110 100 CK-MB (CK-2) 1.57 Troponin I 0.078 04/28/18 04/28/18 04/28/18 09:40 15:36 15:36 Creatine Kinase 92 CK-MB (CK-2) 1.41 1.13 Troponin I 0.050 0.037 EKG Comments: Sinus rhythm, no acute ST-T wave changes are noted Impressions: Chest X-Ray 04/27/18 14:02 IMPRESSION: Extensive chronic appearing changes as noted above. There are some minimal confluent densities in the left lung which could represent an acute process superimposed on the chronic underlying changes. Clinical correlation and followup is recommended. Other findings as noted above Assessment & Plan - Diagnosis (1) Chest pain Qualifiers: Chest pain type: unspecified Qualified Code(s): R07.9 - Chest pain, unspecified Is this a current diagnosis for this admission?: Yes (2) Coronary artery disease Qualifiers: Coronary Disease-Associated Artery/Lesion type: [place] artery [place] vs. transplanted heart: [place] heart Associated angina: angina presence unspecified Qualified Code(s): I25.10 - Atherosclerotic heart disease of [place] coronary artery without angina pectoris Is this a current diagnosis for this admission?: Yes (3) GERD (gastroesophageal reflux disease) Qualifiers: Esophagitis presence: esophagitis presence not specified Qualified Code(s) : K21.9 - Gastro-esophageal reflux disease without esophagitis Is this a current diagnosis for this admission?: Yes (4) Heart murmur Is this a current diagnosis for this admission?: Yes - Notes Notes: Chest pain: Possibly from cardiac ischemia. Nuclear stress test shows small area of mild ischemia limited to inferior wall with SDS of 3 therefore overall small area and relatively low risk. Feel that initial trial of medical management is indicated. In this regard recommend aspirin, Plavix, statin therapy, start with small dose of beta-leobardo such as metoprolol XL 12.5 mg p.o. daily and also very small dose of DILAN inhibitor, lisinopril 2.5 mg p.o. daily or ramipril 1.25 mg p.o. daily. This can be gradually adjusted upwards with close follow-up as an outpatient. Currently patient stable. Heart murmur: Patient seems to have a mitral regurgitation murmur based on auscultation. A 2D echocardiogram unfortunately could not be performed due to staffing issue and echocardiogram machine issue. This can be scheduled as an outpatient. Dyslipidemia: Patient was noted to have high LDL. Recommend high potency statin therapy. Gastroesophageal reflux: Patient also gives history of peptic ulcer disease. Recommend that patient be placed on proton pump inhibitor on a regular basis. Patient will benefit from small meals and avoiding eating within 3 hours of bedtime. - Time Time with patient: Greater than 35 minutes - Patient was seen multiple times today. In the morning nuclear stress test, risk benefits were discussed and informed consent was obtained. Subsequently patient was seen during the stress test and after stress test when results were given. At this point based on small area with mild ischemia, patient is being recommended medical management. Should he failed medical management, then heart catheterization would be a consideration. However this can be decided as an outpatient. Patient advised close cardiology follow-up. Patient's at bedside, information shared with her with patient's consent. Medications reviewed and adjusted accordingly: Yes
[2018-04-29 18:17] VITALS: BP 136/65
--- NOTE | 2018-04-29 18:18 | PDOC DISCHARGE SUMMARY ---
General - Admit/Disc Date/PCP Admission Date/Primary Care Provider: 04/28/18 00:09 ARRON HIDALGO NP Discharge Date: 04/29/18 - Discharge Diagnosis (1) Chest pain Is this a current diagnosis for this admission?: Yes (2) Coronary artery disease Is this a current diagnosis for this admission?: Yes (3) DVT prophylaxis Is this a current diagnosis for this admission?: Yes (4) GERD (gastroesophageal reflux disease) Is this a current diagnosis for this admission?: Yes - Additional Information Resuscitation Status: Do Not Intubate Discharge Diet: Cardiac Discharge Activity: Activity As Tolerated - No driving today. Prescriptions: Atorvastatin Calcium [Lipitor 40 mg Tablet] 40 mg PO QHS #30 tablet Clopidogrel Bisulfate [Plavix 75 mg Tablet] 75 mg PO DAILY #30 tablet Lisinopril [Zestril] 2.5 mg PO DAILY #30 tablet Metoprolol Succinate [Toprol Xl] 12.5 mg PO DAILY #30 tab.er.24h Home Medications: Aspirin [Aspirin EC] 81 mg PO DAILY 04/28/18 Omeprazole Magnesium [Prilosec Otc] 20 mg PO DAILY 04/28/18 Atorvastatin Calcium [Lipitor 40 mg Tablet] 40 mg PO QHS #30 tablet 04/29/18 Clopidogrel Bisulfate [Plavix 75 mg Tablet] 75 mg PO DAILY #30 tablet 04/29/18 Lisinopril [Zestril] 2.5 mg PO DAILY #30 tablet 04/29/18 Metoprolol Succinate [Toprol Xl] 12.5 mg PO DAILY #30 tab.er.24h 04/29/18 History of Present Illness History of Present Illness: JODY ROBERTS is a 67 year old male with history of coronary artery disease status post PCI and stent in 1998 who presented to the emergency room with a calcium of midsternal chest pain felt this tightness increasing with exertion and relieved with rest which has been intermittent over the last 3 years but got worse lately. He denies any associated nausea vomiting or diaphoresis, dyspnea or palpitations. He denied abdominal pain or any bleeding diathesis. No fever or chills. No cough or wheezing or hemoptysis. Upon presentation to the emergency room his EKG showed sinus tachycardia with a rate of 117 and. Blood pressure is 133/72 with a pulse of 114, respiratory rate 16, temperature 98.3 and pulse oximetry of 97% on room air. Labs showed the mild leukocytosis. CMP was unremarkable and troponin I was 0.044 and later 0.102 then 0.108 with CK-MB 1.72 and CK 159. His chest x-ray showed extensive chronic appearing changes with some minimal confluent densities in the left lung which could represent an acute process superimposed on the chronic underlying changes. The patient however denied any respiratory symptoms. The patient was given aspirin. He will be admitted to an observation telemetry bed for further evaluation and monitoring. Hospital Course Hospital Course: The patient was ruled out for OK by EKG and enzyme criteria. Dr. Rutledge was consulted for cardiology. The patient underwent a nuclear medicine stress test today that was possible for a small area of reversible ischemia. Dr. Rutledge felt that this was best treated medically. Dr. Rutledge stated that the patient could be discharged to home on Lisinopril 2.5 one by mouth daily, Metoprolol XL 12.5 one by mouth daily, ASA 81 mg one by mouth daily, Plavix 75mg one by mouth daily , and a statin. The patient is to follow up with Dr. Rutledge as outpatient in his office. He will be discharged to home today in good condition. Physical Exam Vital Signs: Temp Pulse Resp BP Pulse Ox 98.0 F 66 17 134/62 H 97 04/29/18 15:49 04/29/18 15:49 04/29/18 15:49 04/29/18 15:49 04/29/18 15:49 Intake & Output 04/28/18 04/29/18 04/30/18 06:59 06:59 06:59 Intake Total 2300 620 Output Total 550 Balance 1750 620 Weight 79.8 kg General appearance: PRESENT: no acute distress, cooperative Respiratory exam: PRESENT: other - No increased work of breathing.. ABSENT: rales, rhonchi, wheezes Cardiovascular exam: PRESENT: RRR, other - No lateral PMI. No thrills.. ABSENT : gallop, rubs, systolic murmur Pulses: PRESENT: normal dorsalis pedis pul GI/Abdominal exam: PRESENT: normal bowel sounds, soft. ABSENT: hernia, mass, organolmegaly, tenderness Rectal exam: PRESENT: deferred Extremities exam: ABSENT: clubbing, pedal edema, tenderness Musculoskeletal exam: ABSENT: deformity, dislocation, normal inspection Neurological exam: PRESENT: alert, awake, oriented to person, oriented to place , oriented to time, oriented to situation, CN II-XII grossly intact. ABSENT: motor sensory deficit Psychiatric exam: PRESENT: appropriate affect, normal mood Skin exam: PRESENT: dry, intact, warm Results Laboratory Results: 04/28/18 03:41 04/28/18 03:41 04/28/18 04/28/18 04/28/18 03:41 03:41 09:40 Creatine Kinase 110 100 CK-MB (CK-2) 1.57 Troponin I 0.078 04/28/18 04/28/18 04/28/18 09:40 15:36 15:36 Creatine Kinase 92 CK-MB (CK-2) 1.41 1.13 Troponin I 0.050 0.037 Impressions: Chest X-Ray 04/27/18 14:02 IMPRESSION: Extensive chronic appearing changes as noted above. There are some minimal confluent densities in the left lung which could represent an acute process superimposed on the chronic underlying changes. Clinical correlation and followup is recommended. Other findings as noted above Qualifiers - * PATIENT BEING DISCHARGED WITH ANY OF THE FOLLOWING DIAGNOSIS: No Plan Discharge Plan: The patient will be discharged to home on medical therapy for coronary artery disease. Time Spent: Greater than 30 Minutes
== END 2018-04-29 19:27 | disposition home or self-care (01) ==
LOC: ER 13:12 → EH 04-28 00:09 → 5 04-28 14:22
PROVIDERS: ADMIT Family Medicine; ATTEND Family Medicine
DX: R07.89 Other chest pain (principal); I25.10 Atherosclerotic heart disease of native coronary artery without angina pectoris; K21.9 Gastro-esophageal reflux disease without esophagitis; R00.0 Tachycardia, unspecified; D72.829 Elevated white blood cell count, unspecified; R14.2 Eructation; I25.2 Old myocardial infarction; R01.1 Cardiac murmur, unspecified; R11.0 Nausea; R61 Generalized hyperhidrosis; R42 Dizziness and giddiness; Z95.5 Presence of coronary angioplasty implant and graft; Z79.82 Long term (current) use of aspirin; Z79.899 Other long term (current) drug therapy; Z87.11 Personal history of peptic ulcer disease; Z90.49 Acquired absence of other specified parts of digestive tract; Z87.891 Personal history of nicotine dependence; Z82.49 Family history of ischemic heart disease and other diseases of the circulatory system
CPT/HCPCS: 93005 ×2; 94640; 99285; 36415 ×2; 82553 ×2; 82550 ×2; 85025 ×2; 80048; 80053; 84484 ×2; 80061; 93017; 71045; 78452; 93010 ×2; G0378 ×3; A9500; A9270 ×10; J2785; J1650; J0706; J7030 ×2; Q9969; J3490; J7620